=== PATIENT | female | born 1975 | race Caucasian/White ===

== ENCOUNTER 2017-08-31 13:04 | Emergency (ER) | payer OTHER ==
--- NOTE | 2017-08-31 13:24 | PDOC ---
History of Present Illness - General Chief Complaint: Injury Stated Complaint: INJURY TO LEFT RING FINGER Time Seen by Provider: 08/31/17 13:23 - History of Present Illness Initial Comments: 08/31/17 16:43 41-year-old female with no significant past medical history, employee at [employer] presents to the emergency Department after her left fourth finger was crushed under a piece of metal supporting the keyboard in the operating room. Patient reports sustaining a cut on the plantar surface of the finger that is no longer bleeding. Reports pain in the distal aspect of her finger. Denies any other injuries. Last tetanus was within the last 5 years. Was in her usual state of good health, denies any fevers, chills, chest pain, shortness of breath, weakness, numbness, abdominal pain, lower show any edema. States there is no chance she is . Past History - Past Medical History Allergies/Adverse Reactions: Allergies Allergy/AdvReac Type Severity Reaction Status Date / Time No Known Allergies Allergy Verified 08/31/17 13:12 Home Medications: Ambulatory Orders NK [No Known Home Medication] 08/31/17 - Suicide/Smoking/Psychosocial Hx Smoking History: Former smoker Have you smoked in the past 12 months: No Information on smoking cessation initiated: No Hx Alcohol Use: No Drug/Substance Use Hx: No Review of Systems - Review of Systems Comments:: 08/31/17 16:45 GENERAL: Awake, alert, and fully oriented, in no acute distress HEAD: No signs of trauma EYES: PERRLA, EOMI, sclera anicteric, conjunctiva clear NECK: Normal ROM, supple, no lymphadenopathy, JVD, or masses LUNGS: Breath sounds equal, clear to auscultation bilaterally. No wheezes, and no crackles HEART: Regular rate and rhythm, normal S1 and S2, no murmurs, rubs or gallops ABDOMEN: Soft, nontender, normoactive bowel sounds. No guarding, no rebound. No masses EXTREMITIES: L 4th finger with 0.75cm linear superficial abrasion to the plantar surface of the distal phalynx with no bleeding. Mild edema of the DIP in that finger. 2+ radial pulse in L hand. Normal strength and sensation in all digits. Other extremities: normal range of motion, no edema. No clubbing or cyanosis. No cords, erythema, or tenderness. 2+ peripheral pulses. NEUROLOGICAL: Normal speech, cranial nerves grossly intact SKIN: Warm, Dry, normal turgor, no rashes or lesions noted. *Physical Exam - Vital Signs Last Vital Signs Temp Pulse Resp BP Pulse Ox 97.7 F 63 18 105/72 100 08/31/17 13:14 08/31/17 13:14 08/31/17 13:14 08/31/17 13:14 08/31/17 13:14 Medical Decision Making - Medical Decision Making 08/31/17 16:49 41-year-old female presents the emergency department with left fourth finger pain after injuring it at work. Patient sustained a superficial abrasion that does not require suture repair. Left hand is neurovascularly intact. Given edema of DIP and trauma, an x-ray was obtained to rule out bony injury which was negative. Patient has already washed out her finger in the operating room. Tetanus is up-to-date. Discussed with patient signs of infection to look out for on finger. Pt declines a splint for the finger, requests DC back to work. I discussed the physical exam findings, ancillary test results and final diagnoses with the patient. I answered all of the patient's questions. The patient was satisfied with the care received and felt comfortable with the discharge plan and treatment plan. The patient will call their primary care physician within 24 hours to arrange follow-up and will return to the Emergency Department with any new, persistent or worsening symptoms. *DC/Admit/Observation/Transfer Diagnosis at time of Disposition: Finger injury - Discharge Dispostion Disposition: HOME Condition at time of disposition: Stable Admit: No - Referrals - Patient Instructions Printed Discharge Instructions: DI for Finger Sprain Additional Instructions: Follow-up with your primary doctor within 1 week. Return to the emergency department if you have any new, worsening or concerning symptoms. - Post Discharge Activity - Attestations Physician Attestion: 08/31/17 16:52 I, Dr. Taylor Ricketts MD, attest that this document has been prepared under my direction and personally reviewed by me in its entirety. I further attest, that it accurately reflects all work, treatment, procedures and medical decision -making performed by me.
[2017-08-31 13:25] VITALS: BP 105/72; PULSE 63; TEMP 97.7
== END 2017-08-31 17:16 | disposition home or self-care (01) ==
LOC: FER 13:04
DX: S69.92XA Unspecified injury of left wrist, hand and finger(s), initial encounter (principal); W20.8XXA Other cause of strike by thrown, projected or falling object, initial encounter; Y93.89 Activity, other specified; Y92.234 Operating room of hospital as the place of occurrence of the external cause; Y99.0 Civilian activity done for income or pay; Z87.891 Personal history of nicotine dependence
CPT/HCPCS: 73140-TC-LT-FY; 99281-25